=== PATIENT | female | born 1990 | race Caucasian/White ===

== ENCOUNTER → 2017-06-11 | Outpatient (CLI) | payer OTHER ==
--- NOTE | 2017-06-11 14:53 | RADIOLOGY REPORT (SQ) ---
EXAM DESCRIPTION: MRI RT LOWER JOINT WITHOUT COMPLETED DATE/TIME: 06/11/2017 11:10 am REASON FOR STUDY: GENOVEVA OF ANTERIOR CRUCIATE LIGAMENT OF RIGHT KNEE S83.511A SPRAIN OF ANTERIOR CRU CIATE LIGAMENT OF RIGHT KNEE, COMPARISON: None. TECHNIQUE: Rightknee images acquired and stored on PACS. Multiplanar images include fat sensitive s equences as T1, water sensitive sequences as FST2 or STIR, cartilage sensitive sequences as FSPD, and gradient echo sequences. LIMITATIONS: None. FINDINGS: JOINT AND BURSAE: Joint effusion. No popliteal cyst. BONE CORTEX AND MARROW: No alteration of signal to suggest marrow replacement. No worrisome bone lesi ons. No occult fracture. ACL: Prior ACL repair. Graft appears intact. PCL: Intact. MCL: Intact. No periligamentous edema or fluid. LCL: Intact. No periligamentous edema or fluid. MEDIAL MENISCUS: No tears. No abnormal signal. LATERAL MENISCUS: No tears. No abnormal signal. MEDIAL COMPARTMENT: Cartilage preserved. No bone bruises or reactive marrow edema. No osteophytes. LATERAL COMPARTMENT: Cartilage preserved. No bone bruises or reactive marrow edema. No osteophytes. PATELLA: Fissuring of the central patellar. Trochlear cartilage is intact. EXTENSOR MECHANISM: Intact. Quadriceps and patella tendons normal. SOFT TISSUES: Adjacent muscles and subcutaneous tissues normal. Normal flow void in popliteal artery and vein. OTHER: No other significant finding. IMPRESSION: ACL graft intact. Early chondromalacia of the central patella. Small joint effusion. TECHNICAL DOCUMENTATION: JOB ID: [id number] [employer]- All Rights Reserved Reading location - IP/workstation name: [email or web address]
== END ==
LOC: RAD 10:26
PROVIDERS: ATTEND Family Medicine
DX: S83.511A Sprain of anterior cruciate ligament of right knee, initial encounter (principal); X58.XXXA Exposure to other specified factors, initial encounter

== ENCOUNTER 2017-10-05 08:35 | Emergency (ER) | payer OTHER ==
--- NOTE | 2017-10-05 09:29 | ER Document Report ---
ED Medical Screen (RME) - General Chief Complaint: Vaginal Bleeding Stated Complaint: VAGINAL BLEEDING Time Seen by Provider: 10/05/17 09:28 Notes: RAPID MEDICAL EVALUATION DISCLOSURE I have seen this patient as part of a Rapid Medical Evaluation and, if applicable, placed any initially appropriate orders. The patient will be seen and fully evaluated, including a full history and physical exam, by a provider ( in Main ED or Fast Track) when a room becomes available. 27-year-old female here with abnormal vaginal bleeding for the past 4 days. She has been changing her pads every 2-3 hours. She has had clots of blood. Some lower abdominal cramping as well. She is usually regular with respect to her menstrual cycle timing. She does not know if she could be . EXAM Minimal lower quadrant TTP No peritoneal signs TRAVEL OUTSIDE OF THE [place] IN LAST 30 DAYS: No - Related Data Allergies/Adverse Reactions: Penicillins Allergy (Verified 10/05/17 08:36) Past Medical History - General Last Menstrual Period: September 14, 2017 - Social History Frequency of alcohol use: Social Renal/ Medical History: Denies: Hx Peritoneal Dialysis Physical Exam - Vital signs Vitals: Temp Pulse Resp BP Pulse Ox 98.7 F 84 16 152/83 H 100 10/05/17 08:38 10/05/17 08:38 10/05/17 08:38 10/05/17 08:38 10/05/17 08:38 Course - Vital Signs Vital signs: Temp Pulse Resp BP Pulse Ox 98.7 F 84 16 152/83 H 100 10/05/17 08:38 10/05/17 08:38 10/05/17 08:38 10/05/17 08:38 10/05/17 08:38 Doctor's Discharge - Discharge Referrals: OMAYRA FELTON MD [Primary Care Provider] - Follow up as needed
[2017-10-05 09:55] LABS: ABSOLUTE EOSINOPHILS # (AUTO) 0.1 10^3/uL (0.0-0.6); ABSOLUTE LYMPHOCYTES (AUTO) 1.3 10^3/uL (0.5-4.7); ABSOLUTE MONOCYTES (AUTO) 0.5 10^3/uL (0.1-1.4); ABSOLUTE NEUT (AUTO) 3.4 10^3/uL (1.7-8.2); BASOPHILS % (AUTO) 0.3 % (0-2); EOSINOPHILS % (AUTO) 1.1 % (0-6); HEMATOCRIT 39.4 % (36.0-47.0); HEMOGLOBIN 13.3 g/dL (12.0-15.5); LYMPHOCYTES % (AUTO) 25.4 % (13-45); MEAN CORPUSCULAR HEMOGLOBIN 30.8 pg (27.0-33.4); MEAN CORPUSCULAR HGB CONC 33.8 g/dL (32.0-36.0); MEAN CORPUSCULAR VOLUME 91 fl (80-97); MONOCYTES % (AUTO) 8.7 % (3-13); PLATELET COUNT 227 10^3/uL (150-450); RED BLOOD COUNT 4.32 10^6/uL (3.72-5.28); RED CELL DISTRIBUTION WIDTH 12.3 % (11.5-14.0); SEGMENTED NEUTROPHILS % (AUTO) 64.5 % (42-78); TOTAL CELLS COUNTED % (AUTO) 100 %; WHITE BLOOD COUNT 5.2 10^3/uL (4.0-10.5)
[2017-10-05 10:12] LABS: APPEARANCE,URINE CLEAR; BILIRUBIN,URINE NEGATIVE (NEGATIVE); COLOR,URINE YELLOW; GLUCOSE, URINE NEGATIVE (NEGATIVE); KETONES,URINE NEGATIVE (NEGATIVE); LEUKOCYTE ESTERASE,URINE NEGATIVE (NEGATIVE); NITRITE,URINE NEGATIVE (NEGATIVE); PROTEIN,URINE NEGATIVE (NEGATIVE); URINE SPECIFIC GRAVITY 1.009; UROBILINOGEN,URINE NEGATIVE mg/dL (<2.0)
[2017-10-05 10:17] LABS: ANION GAP 13 (5-19); BLOOD UREA NITROGEN 14 mg/dL (7-20); CALCIUM 9.5 mg/dL (8.4-10.2); CARBON DIOXIDE 28 mmol/L (22-30); CHLORIDE 102 mmol/L (98-107); GLUCOSE 98 mg/dL (75-110); POTASSIUM 4.6 mmol/L (3.6-5.0); SODIUM 142.5 mmol/L (137-145)
--- NOTE | 2017-10-05 10:42 | ER Document Report ---
ED GI/ - General Chief Complaint: Vaginal Bleeding Stated Complaint: VAGINAL BLEEDING Time Seen by Provider: 10/05/17 09:28 Mode of Arrival: Ambulatory Information source: Patient Notes: Patient is a 27-year-old female who presents to the ER today for heavy vaginal bleeding and passing of large clots that started 4 days ago. Patient states that it has not come down at all and is still very heavy which is abnormal for her menstrual cycles. Patient states that her last menstrual cycle was on September 14 so this is a little too early to be her normal period. Pt denies , but is unsure. She states most of the clots have been golf ball size, but one was the size of a softball. She has no history of fibroids, ovarian cyst that she knows of or any other uterine abnormality. She is not on control. TRAVEL OUTSIDE OF THE [place] IN LAST 30 DAYS: No - Related Data Allergies/Adverse Reactions: Penicillins Allergy (Verified 10/05/17 08:36) Past Medical History - General Information source: Patient Last Menstrual Period: September 14, 2017 - Social History Smoking Status: Never Smoker Frequency of alcohol use: Social Family History: None Patient has suicidal ideation: No Patient has homicidal ideation: No Renal/ Medical History: Denies: Hx Peritoneal Dialysis Review of Systems - Review of Systems Constitutional: No symptoms reported EENT: No symptoms reported Cardiovascular: No symptoms reported Respiratory: No symptoms reported Gastrointestinal: No symptoms reported Genitourinary: No symptoms reported Female Genitourinary: See HPI Musculoskeletal: No symptoms reported Skin: No symptoms reported Hematologic/Lymphatic: No symptoms reported Neurological/Psychological: No symptoms reported Physical Exam - Vital signs Vitals: Temp Pulse Resp BP Pulse Ox 98.7 F 84 16 152/83 H 100 10/05/17 08:38 10/05/17 08:38 10/05/17 08:38 10/05/17 08:38 10/05/17 08:38 - Notes Notes: PHYSICAL EXAMINATION: GENERAL: Well-appearing and in no acute distress. HEAD: Atraumatic, normocephalic. EYES: Pupils equal round and reactive to light, extraocular movements intact, sclera anicteric, conjunctiva are normal. NECK: Normal range of motion, supple without lymphadenopathy LUNGS: CTAB and equal. No wheezes rales or rhonchi. HEART: Regular rate and rhythm without murmurs ABDOMEN: Soft, no tenderness. No guarding, no rebound BACK: no vertebral tenderness, normal ROM Pelvic: Bright red blood in vaginal canal, small clots, no large clots, no vaginal discharge, no cervical motion tenderness, no adnexal tenderness GI/: no CVA tenderness EXTREMITIES: Normal range of motion, no pitting edema. No cyanosis. NEUROLOGICAL: Cranial nerves grossly intact. Normal sensory/motor exams. PSYCH: Normal mood, normal affect. SKIN: Warm, Dry, normal turgor, no rashes or lesions noted Course - Re-evaluation Re-evalutation: 10/06/17 08:35 Hemoglobin is normal, 13, negative today, ultrasound reveals blood and small clots in the uterus but no other acute pathology. I did consult with Dr. Dean, [facility] on-call who agrees that this sounds like a heavy menstrual period and she can follow-up in the office. I will place her on medroxyprogesterone for 5 days because she is very concerned about the large clots. - Vital Signs Vital signs: Temp Pulse Resp BP Pulse Ox 99.1 F 78 16 133/74 H 100 10/05/17 12:16 10/05/17 12:16 10/05/17 12:16 10/05/17 12:16 10/05/17 12:16 - Laboratory Result Diagrams: 10/05/17 09:39 10/05/17 09:39 Laboratory results interpreted by me: 10/05/17 09:39 Urine Blood LARGE H Discharge - Discharge Clinical Impression: Episode of heavy vaginal bleeding Condition: Stable Disposition: HOME, SELF-CARE Additional Instructions: Return immediately for any new or worsening symptoms. Follow up with [facility], call tomorrow to make followup appointment. Prescriptions: Medroxyprogesterone Acetate 10 mg PO DAILY #5 tablet Forms: Return to School Referrals: OMAYRA FELTON MD [Primary Care Provider] - Follow up as needed
--- NOTE | 2017-10-05 11:57 | RADIOLOGY REPORT (SQ) ---
EXAM DESCRIPTION: U/S NON-OB PELVIS W/O DOP COMPLETED DATE/TIME: 10/05/2017 11:32 am REASON FOR STUDY: passing golf ball and soft ball size clots COMPARISON: None. TECHNIQUE: Dynamic and static grayscale images acquired of the pelvis via transabdominal approach an d recorded on PACS. Additional selected color Doppler and spectral images recorded. LIMITATIONS: None. FINDINGS: UTERUS: Contour normal. No mass. ENDOMETRIAL STRIPE: A complex fluid filled area is identified within the endometrium measuring 5.2 x 4.3 x 2.7 cm in diameters. CERVIX: No nabothian cysts. RIGHT OVARY AND DOPPLER: Normal size. No worrisome masses. Normal arterial vascular flow without evid ence for torsion. LEFT OVARY AND DOPPLER: Normal size. No worrisome masses. Normal arterial vascular flow without evide nce for torsion. FREE FLUID: None noted. OTHER: No other significant finding. MEASUREMENTS: UTERUS: 8.8 x 6.9 x 4.4 cm ENDOMETRIAL STRIPE: 38 mm RIGHT OVARY: 3.3 x 2.6 x 2.3 cm LEFT OVARY: 2.9 x 2.6 x 2.1 cm IMPRESSION: A complex fluid fiilled area is identified within the endometrium as noted above. This presumably represents a combination of blood clots and fresh blood. Other etiologies cannot be exclu ded and followup is recommended to exclude an underlying process. Clinical correlation is recommende d.. TECHNICAL DOCUMENTATION: JOB ID: [id number]- All Rights Reserved Rev-08/04 Reading location - IP/workstation name: [email or web address]
[2017-10-05] MEDS ORDERED: HYDROCODONE/ACETAMINOPHEN 5-325 MG TABLET PO ONE (12:10)
[2017-10-05 12:22] VITALS: BP 133/74
== END 2017-10-05 12:22 | disposition home or self-care (01) ==
LOC: ER 08:35
DX: N93.9 Abnormal uterine and vaginal bleeding, unspecified (principal); Z88.0 Allergy status to penicillin
CPT/HCPCS: 36415; 76856; 80048; 81001; 81025; 85025; 99284